=== PATIENT | male | born 1975 | race Caucasian/White ===

== ENCOUNTER 2021-06-08 10:38 | Inpatient (IN) ==
[2021-06-08] MEDS ORDERED: NS 1,000 ML IV 1,000 ML ONE (11:18)
[2021-06-08] MEDS ORDERED: NS 1,000 ML IV 1,000 ML IV ONE (11:18)
[2021-06-08] MEDS ORDERED: ZOFRAN INJ 4 MG VIAL IVP ONE (11:20)
[2021-06-08] MEDS ORDERED: DEMEROL INJ IVP ONE (11:20)
--- NOTE | 2021-06-08 11:24 | DR.GENAD ---
HPI Time Seen Time Seen by Provider: 06/08/21 11:17 PCP Primary Care Physician: JOHN (GI) HPI Comment HPI Comment: PATIENT IS 46YR OLD FEMALE IN ER WITH CROHNS DISEASE FLARE UP TIMES 2 DAYS. NAUSEA MED NOT HEPING AND NOT HOLDING DOWN PREDNISONE OR FLUID. HAVING VOMITING AND DIARRHEA. Complaint/Symptoms Chief Complaint Doctors Comments: ABDOMINAL PAIN, NAUSEA, VOMITING DIARRHEA TIMES 2 DAYS. Chief Complaint:: PT STATES HIS CROHN'S IS FLARING UP. HE DIDN'T MAKE IT TO SEE DR. LOPEZ THIS WEEK; DR. LOPEZ ONLY CALLED IN NAUSEA MED LAST NIGHT. PT UNABLE TO TAKE PREDNISONE PRESCRIBED BY [facility] IN [place] YESTERDAY. COVID-19 Coronavirus risk:travel/contact w/high risk person: No Has patient experienced Coronavirus symptoms: No Nurses notes reviewed Nurses Notes Review: Yes Source History Provided: Patient Mode of Arrival Mode of Arrival: Ambulatory Timing Onset of Chief Complaint: 06/06/21 Came on: Suddenly Duration Duration: Constant Duration: Days Severity Severity: Moderate Modifying Factors Worsens:: FOOD. Improves:: LYING STILL. Associated Signs and Symptoms Associated Signs and Symptoms: WEAKNESS, Other History Other History: CROHNS DISEASE. PMH PMH Past Medical History: Yes Past Medical History: Anemia Past Medical History Comment: CROHN'S Past Surgical History: Yes Past Surgical History Comment: GI SURGERY Family History History of Family Medical Conditions: Yes Family Medical History: Hypertension Social History Does any household member use tobacco: No Alcohol Use: None Do you use any recreational Drugs:: No Lives With: Spouse and Family Lives Where: Home Travel Risk Coronavirus risk:travel/contact w/high risk person: No Has patient experienced Coronavirus symptoms: No Infectious screening In the last 2 months have you had wt loss of >10#?: NO Have you had fever, night sweats or hemotysis?: No Have you traveled outside the country in the last 6 months?: No Isolation: Standard ROS Review of Systems Constitutional: See HPI, Weakness and Fatigue; negative Fever Eyes: No Symptoms Reported and See HPI ENTM: No Symptoms Reported and See HPI; negative Nose Discharge and Nose Congestion Respiratoy: No Symptoms Reported and See HPI; negative Moist Cough, Short of Breath and Wheezing Cardiovascular: No Symptoms Reported and See HPI; negative Chest Pain Gastrointestinal/Abdominal: See HPI, Abdominal Pain, Diarrhea, Nausea and Vomiting Genitourinary: No Symptoms Reported and See HPI; negative Dysuria, Frequency and Hematuria Neurological: No Symptoms Reported and See HPI; negative Headache, Weakness and Dizziness Musculoskeletal: No Symptoms Reported and See HPI; negative Back Pain Integumentary: No Symptoms Reported and See HPI; negative Rash and Juandice Hematologic/Lymphatic: No Symptoms Reported and See HPI; negative Easy Bruising Endocrine: No Symptoms Reported and See HPI; negative Increased Thirst and Increased Urine Psychiatric: No Symptoms Reported and See HPI All Other Systems: Reviewed and Negative PE Vital Signs Vitals: Temperature 98.0 F Pulse Rate 94 Respiratory Rate 18 Blood Pressure 118/73 O2 Sat by Pulse Oximetry 99 General Limitations: No Limitations General Appearance: Alert and In No Apparent Distress Head Head Exam: Normal Inspection Eyes Eye exam: Normal Appearance; negative Scleral Icterus and Conjunctival Injection ENT ENT Exam: Normal Exam, Normal Oropharynx, Normal External Ear Exam and TM's Normal Bilaterally External Ear Exam: Normal External Inspection; negative Mastoid Tenderness TM/Canal Exam: Bilateral: Normal Nose Exam: Normal Nose Exam Mouth Exam: Normal Inspection; negative Lip Swelling and Tongue Swelling Throat Exam: Normal Inspection; negative Tonsillar Erythema, Tonsillomegaly and Tonsillar Exudate Neck Neck Exam: Normal Inspection and Trachea Midline; negative Tenderness Chest Chest Inspection: Normal Inspection; negative Symmetric Chest Wall Rise and Tenderness Respiratory Respiratory Exam: Normal Lung Sounds Bilat; negative Accessory Muscle Use, Chest Wall Tenderness and Respiratory Distress Respiratory Exam: Bilateral: Clear to Auscultation Cardiovascular Cardiovascular Exam: Regular Rate, Normal Rhythm and Normal Heart Sounds; negative Systolic Murmur and Diastolic Murmur Abdominal Exam Abdominal Exam: Normal Bowel Sounds, Soft and Tenderness Abdominal Tenderness: RLQ, LLQ, Suprapubic and Moderate Extremities Extremities Exam: Normal Inspection and Normal Capillary Refill Back Back Exam: Normal Inspection; negative (R) CVA Tenderness and (L) CVA Tenderness Neurologic Neurological Exam: Alert and Oriented X3; negative Motor Sensory Deficit Psychiatric Psychiatric Exam: Normal Affect and Normal Mood Skin Skin Exam: Warm, Dry, Intact and Normal Color MDM Additional Information Additional Information Obtained From: Family Differential Diagnosis Differential Diagnosis: LOWER ABDOMINAL PAIN, CROHNS DISEASE, UTI, DIVERTICULITIS, IBD. COURSE Treatment Treatment: SEE ORDERS DONE WHILE PATIENT IN ER. PATIENT GIVEN NS, 1L IV BOLUS, ZOFRAN 4MG IV AND DEMOROL 25MG IV GIVEN WHILE PATIENT IN ER. LABS AND CT REPORT DISCUSSED WITH PATIENT. PATIENT WAS ADMITTED TO HOSPITAL FOR FURTHER MANAGEMENT. Reevaluation 1st: Improved (PAIN IMPROVING.) Consultation Consultation Comments: DISCUSSED PATIENT WITH DR. GARCIA. HE WILL ADMIT PATIENT. Education/Counseling Education/Counseling: Patient Educated On: Diagnosis ROR Labs Reviewed Result Diagrams: 06/10/21 05:50 06/10/21 05:50 Laboratory: WBC 5.3 X10^3/uL (3.6-10.0) 06/08/21 11:30 RBC 4.62 X10^6/uL (4.7-6.0) L 06/08/21 11:30 Hgb 10.5 g/dL (13.5-18.0) L 06/08/21 11:30 Hct 32.9 % (42.0-54.0) L 06/08/21 11:30 MCV 71.2 fL (80.0-100.0) L 06/08/21 11:30 MCH 22.7 pg (27.0-34.0) L 06/08/21 11:30 MCHC 31.8 g/dL (33.0-35.0) L 06/08/21 11:30 RDW 19.1 % (11.6-16.5) H 06/08/21 11:30 Plt Count 217 X10^3/uL (150.0-450.0) 06/08/21 11:30 Plt Count Comment Adequate (ADEQUATE) 06/08/21 11:30 MPV 9.1 fL (7.4-11.0) 06/08/21 11:30 Neut % (Auto) 69.7 % (42.0-75.0) 06/08/21 11:30 Lymph % (Auto) 14.3 % (21.0-51.0) L 06/08/21 11:30 [place] % (Auto) 12.6 % (0.0-13.0) 06/08/21 11:30 Eos % (Auto) 2.5 % (0.9-2.9) 06/08/21 11:30 Baso % (Auto) 0.9 % (0.2-1.0) 06/08/21 11:30 Neut # (Auto) 3.7 x10^3/uL (2.2-4.8) 06/08/21 11:30 Lymph # (Auto) 0.8 X10^3/uL (1.3-2.9) L 06/08/21 11:30 [place] # (Auto) 0.7 x10^3/uL (0.3-0.8) 06/08/21 11:30 Eos # (Auto) 0.1 x10^3/uL (0.0-0.2) 06/08/21 11:30 Baso # (Auto) 0.0 X10^3/uL (0.0-0.1) 06/08/21 11:30 Absolute Nucleated RBC 0.0 /100WBC 06/08/21 11:30 Total Counted Cancelled 06/08/21 11:30 Neutrophils % (Manual) Cancelled 06/08/21 11:30 Band Neutrophils % Cancelled 06/08/21 11:30 Lymphocytes % (Manual) Cancelled 06/08/21 11:30 Monocytes % (Manual) Cancelled 06/08/21 11:30 Eosinophils % (Manual) Cancelled 06/08/21 11:30 Basophils % (Manual) Cancelled 06/08/21 11:30 Metamyelocytes % Cancelled 06/08/21 11:30 Myelocytes % Cancelled 06/08/21 11:30 Promyelocytes % Cancelled 06/08/21 11:30 Plt Morphology Comment Normal (NORMAL) 06/08/21 11:30 RBC Morphology Abnormal (NORMAL) 06/08/21 11:30 Hypochromasia 1+ A 06/08/21 11:30 Anisocytosis Slight A 06/08/21 11:30 Microcytosis Slight A 06/08/21 11:30 Ovalocytes Present 06/08/21 11:30 ESR 14 MM/HOUR (0-15) 06/08/21 11:30 Sodium 143 mmol/L (136-145) 06/08/21 11:30 Corrected Sodium TNP 06/08/21 11:30 Potassium 3.9 mmol/L (3.5-5.1) 06/08/21 11:30 Chloride 105 mmol/L (98-107) 06/08/21 11:30 Carbon Dioxide 29.1 mmol/L (21-32) 06/08/21 11:30 BUN 9 mg/dL (7-18) 06/08/21 11:30 Creatinine 0.92 mg/dL (0.70-1.30) 06/08/21 11:30 Est GFR (MDRD) Af Amer > 60 (>60) 06/08/21 11:30 Est GFR (MDRD) Non-Af > 60 (>60) 06/08/21 11:30 Glucose 91 mg/dL (65-99) 06/08/21 11:30 Calcium 7.9 mg/dL (8.5-10.1) L 06/08/21 11:30 Corrected Calcium TNP 06/08/21 11:30 Total Bilirubin 0.40 mg/dL (0.2-1.0) 06/08/21 11:30 AST 8 Units/L (15-37) L 06/08/21 11:30 ALT 13 Units/L (12-78) 06/08/21 11:30 Alkaline Phosphatase 61 Units/L (46-116) 06/08/21 11:30 Total Protein 6.5 g/dL (6.4-8.2) 06/08/21 11:30 Albumin 3.4 g/dL (3.4-5.0) 06/08/21 11:30 Globulin 3.1 g/dL (2.5-4.5) 06/08/21 11:30 Albumin/Globulin Ratio 1.1 Ratio (1.1-2.1) 06/08/21 11:30 Amylase 47 Units/L (25-115) 06/08/21 11:30 Lipase 72 Units/L (73-393) L 06/08/21 11:30 Specimen Type Clean catch urine 06/08/21 13:00 Urine Color Yellow (YELLOW) 06/08/21 13:00 Urine Appearance Cloudy (CLEAR) 06/08/21 13:00 Urine pH 5.0 (5.0 - 8.0) 06/08/21 13:00 Ur Specific [place] 1.025 (1.000-1.030) 06/08/21 13:00 Urine Protein 2+ (NEGATIVE) 06/08/21 13:00 Urine Glucose (UA) Negative (NEGATIVE) 06/08/21 13:00 Urine Ketones 4+ (NEGATIVE) 06/08/21 13:00 Urine Occult Blood Negative (NEGATIVE) 06/08/21 13:00 Urine Nitrite Negative (NEGATIVE) 06/08/21 13:00 Urine Bilirubin 2+ (NEGATIVE) 06/08/21 13:00 Urine Urobilinogen 1+ (NORMAL) 06/08/21 13:00 Ur Leukocyte Esterase 1+ (NEGATIVE) 06/08/21 13:00 Urine RBC 3-5 /HPF (0-3) A 06/08/21 13:00 Urine WBC 3-5 /HPF (0-5) 06/08/21 13:00 Ur Squamous Epith Cells Negative /HPF (NEGATIVE) 06/08/21 13:00 Urine Bacteria Negative /HPF (NEGATIVE) 06/08/21 13:00 Ur Culture Indicated? No/not indicated 06/08/21 13:00 SARS CoV-2 RNA Rapid BARB Negative (NEGATIVE) 06/08/21 13:15 Opioid Opioid Risk Tool Age (Kasi box if 16-45): Yes History of Preadolescent Sexual Abuse: No Total: 1 Total Score Risk Category: Low Risk Copyright: Ben BARRERA predicting aberrant behaviors Diagnosis Discharge Problem: RLQ abdominal pain Crohn's disease Qualifiers: Gastrointestinal tract location: small intestine Digestive disease complication type: unspecified complication Qualified Code(s): K50.019 - Crohn's disease of small intestine with unspecified complications Instructions Instructions: Bowel Obstruction, [id number] Abdominal Pain, Adult, [id number] [place] Diet Crohn's Disease Forms: Excuse From Work or School Precautions for COVID19 [facility] Social Distancing
[2021-06-08 11:40] LABS: BASOPHILS % (AUTO) 0.9 % (0.2-1.0); EOSINOPHILS # (AUTO) 0.1 x10^3/uL (0.0-0.2); EOSINOPHILS % (AUTO) 2.5 % (0.9-2.9); HEMATOCRIT 32.9 % (42.0-54.0); HEMOGLOBIN 10.5 g/dL (13.5-18.0); LYMPHOCYTES # (AUTO) 0.8 X10^3/uL (1.3-2.9); LYMPHOCYTES % (AUTO) 14.3 % (21.0-51.0); MEAN CORPUSCULAR HEMOGLOBIN 22.7 pg (27.0-34.0); MEAN CORPUSCULAR HGB CONC 31.8 g/dL (33.0-35.0); MEAN CORPUSCULAR VOLUME 71.2 fL (80.0-100.0); MEAN PLATELET VOLUME 9.1 fL (7.4-11.0); MONOCYTES # (AUTO) 0.7 x10^3/uL (0.3-0.8); MONOCYTES % (AUTO) 12.6 % (0.0-13.0); NEUTROPHILS # (AUTO) 3.7 x10^3/uL (2.2-4.8); NEUTROPHILS % (AUTO) 69.7 % (42.0-75.0); RED BLOOD COUNT 4.62 X10^6/uL (4.7-6.0); RED CELL DISTRIBUTION WIDTH 19.1 % (11.6-16.5); WHITE BLOOD COUNT 5.3 X10^3/uL (3.6-10.0)
[2021-06-08] MEDS ORDERED: DEMEROL INJ ONE (11:48)
[2021-06-08] MEDS ORDERED: ZOFRAN INJ 4 MG VIAL ONE (11:49)
[2021-06-08 11:50] LABS: ALANINE AMINOTRANSFERASE 13 Units/L (12-78); ALBUMIN 3.4 g/dL (3.4-5.0); ALKALINE PHOSPHATASE 61 Units/L (46-116); AMYLASE 47 Units/L (25-115); ASPARTATE AMINO TRANSFERASE 8 Units/L (15-37); BLOOD UREA NITROGEN 9 mg/dL (7-18); CALCIUM 7.9 mg/dL (8.5-10.1); CARBON DIOXIDE 29.1 mmol/L (21-32); CHLORIDE 105 mmol/L (98-107); CREATININE 0.92 mg/dL (0.70-1.30); LIPASE 72 Units/L (73-393); SODIUM 143 mmol/L (136-145); TOTAL PROTEIN 6.5 g/dL (6.4-8.2); eGFR NON BLACK RACES > 60 (>60)
--- NOTE | 2021-06-08 11:58 | CT ---
HISTORYPT C/O NAUSEA, VOMITING, DIARRHEA, ABDOMINAL PAIN. HX OF CROHN'S DISEASESTUDYABDOMEN/PELVIS W/O CONCOMPARISONNone availableTECHNIQUEAxial CT images of the abdomen and pelvis without intravenous contrast. Coronal and sagittal images are obtained. Dose reduction techniques including Automated Exposure Control (AEC) and adjustment of mA and kV were utilized.FINDINGSLower chest: No significant abnormalityLiver: No significant abnormalityGallbladder and Bile Ducts:No significant abnormalityPancreas: No significant abnormalitySpleen: No significant abnormalityAdrenals: No significant abnormalityKidneys: No significant abnormalityBladder: No significant abnormalityReproductive Structures: No significant abnormality.Bowel and Stomach: The proximal to mid small bowel is moderately dilated with areas of mild mural thickening and inflammatory stranding. There is transition point located at the anastomosis in the central pelvis. Distal small bowel loops are decompressed, extending to the operative changes at the ileocecal junction. The colon is unremarkable.Appendix: Not visualizedLymph Nodes: No significant lymphadenopathyVasculature: Abdominal aorta and branching vessels are normal in caliberOther: No significant free fluid. No organized collection of free air.Osseous Structures: No acute osseous findingsIMPRESSION1. Small-bowel obstruction with transition point located at the small bowel anastomosis in the pelvis2. Scattered areas of mural thickening and inflammatory stranding of the dilated mid small bowel may be related to obstruction/distension or could reflect enteritis.3. No other acute abnormality.Electronically signed by: Juan Carlos Esparza (Jun 08, 2021 11:57:20)
[2021-06-08 12:48] LABS: PLATELET MORPHOLOGY COMMENT NORMAL (NORMAL)
[2021-06-08 12:49] LABS: ANISOCYTOSIS SLIGHT; HYPOCHROMASIA 1+; MICROCYTOSIS SLIGHT; OVALOCYTES PRESENT
[2021-06-08 13:14] LABS: BILIRUBIN,URINE 2+ (NEGATIVE); BLOOD/HEMOGLOBIN,URINE NEGATIVE (NEGATIVE); COLOR,URINE YELLOW (YELLOW); GLUCOSE, URINE NEGATIVE (NEGATIVE); KETONES,URINE 4+ (NEGATIVE); LEUKOCYTE ESTERASE ,URINE 1+ (NEGATIVE); NITRITES,URINE NEGATIVE (NEGATIVE); PROTEIN,URINE 2+ (NEGATIVE); UROBILINOGEN,URINE 1+ (NORMAL)
[2021-06-08 13:15] LABS: APPEARANCE,URINE CLOUDY (CLEAR)
[2021-06-08 13:17] LABS: BACTERIA,URINE NEGATIVE /HPF (NEGATIVE); SQUAMOUS EPITHELIAL CELL,UR NEGATIVE /HPF (NEGATIVE)
[2021-06-08] MEDS ORDERED: ZOSYN VIAL 3.375 GRAMS IV ONE (13:35)
[2021-06-08] MEDS ORDERED: NS 100 ML IV 100 ML ONE (13:36)
[2021-06-08] MEDS: ZOSYN VIAL 3.375 GRAMS 3.375 G in NS 100 ML IV 100 ML IV SCH ×2 (13:50→14:13)
[2021-06-08] MEDS ORDERED: ZOFRAN INJ 4 MG VIAL IVP PRN (19:18)
[2021-06-08] MEDS ORDERED: DILAUDID INJ IVP PRN (19:18)
[2021-06-08] MEDS: PROTONIX TAB 40 MG PO SCH (20:16)
[2021-06-08] MEDS ORDERED: NS 250 ML IV 250 ML IV ONE (22:40)
[2021-06-08] MEDS: SOLU-Medrol 125 MG VIAL IVP SCH (22:46)
[2021-06-08] MEDS: FLAGYL IV PREMIX 500 MG BAG 500 MG/100 ML BAG IV SCH (22:46)
[2021-06-09] MEDS: ZOSYN VIAL 3.375 GRAMS 3.375 G in NS 100 ML IV 100 ML IV SCH ×4 (00:30→21:37)
[2021-06-09] MEDS: FLAGYL IV PREMIX 500 MG BAG 500 MG/100 ML BAG IV SCH ×4 (04:39→20:36)
[2021-06-09] MEDS: SOLU-Medrol 125 MG VIAL IVP SCH ×3 (06:00→21:37)
[2021-06-09 06:21] LABS: BASOPHILS % (AUTO) 0.3 % (0.2-1.0); EOSINOPHILS % (AUTO) 0.2 % (0.9-2.9); HEMATOCRIT 29.6 % (42.0-54.0); HEMOGLOBIN 9.3 g/dL (13.5-18.0); LYMPHOCYTES # (AUTO) 0.4 X10^3/uL (1.3-2.9); LYMPHOCYTES % (AUTO) 11.7 % (21.0-51.0); MEAN CORPUSCULAR HEMOGLOBIN 22.6 pg (27.0-34.0); MEAN CORPUSCULAR HGB CONC 31.6 g/dL (33.0-35.0); MEAN CORPUSCULAR VOLUME 71.5 fL (80.0-100.0); MEAN PLATELET VOLUME 9.9 fL (7.4-11.0); MONOCYTES # (AUTO) 0.1 x10^3/uL (0.3-0.8); MONOCYTES % (AUTO) 1.8 % (0.0-13.0); NEUTROPHILS # (AUTO) 2.6 x10^3/uL (2.2-4.8); RED BLOOD COUNT 4.14 X10^6/uL (4.7-6.0); RED CELL DISTRIBUTION WIDTH 18.8 % (11.6-16.5)
[2021-06-09 06:29] LABS: ALANINE AMINOTRANSFERASE 12 Units/L (12-78); ALBUMIN 2.9 g/dL (3.4-5.0); ALKALINE PHOSPHATASE 52 Units/L (46-116); ASPARTATE AMINO TRANSFERASE 8 Units/L (15-37); BLOOD UREA NITROGEN 12 mg/dL (7-18); CALCIUM 7.5 mg/dL (8.5-10.1); CARBON DIOXIDE 26.7 mmol/L (21-32); CHLORIDE 106 mmol/L (98-107); COR CA(FOR HYPOALB) 8.4 mg/dL (8.5-10.1); CREATININE 0.94 mg/dL (0.70-1.30); SODIUM 141 mmol/L (136-145); TOTAL PROTEIN 5.8 g/dL (6.4-8.2); eGFR NON BLACK RACES > 60 (>60)
[2021-06-09 06:57] LABS: PLATELET MORPHOLOGY COMMENT NORMAL (NORMAL)
[2021-06-09 06:58] LABS: ANISOCYTOSIS SLIGHT; HYPOCHROMASIA 1+; MICROCYTOSIS SLIGHT; OVALOCYTES PRESENT
[2021-06-09] MEDS: PROTONIX TAB 40 MG PO SCH (09:31)
--- NOTE | 2021-06-09 11:06 | RAD ---
HISTORYAbdominal painSTUDYKUBCOMPARISONCT from 06/08/2021FINDINGSPostoperative changes of the right abdomen. Dilated small bowel loops remain. This appears unchanged from yesterday CT. No free air.IMPRESSIONUnchanged small-bowel dilatationElectronically signed by: Juan Carlos Esparza (Jun 09, 2021 11:05:51)
--- NOTE | 2021-06-09 11:36 | DR.PROGNOT ---
Hospital Progress Notes - Progress Note for Day of: Progress Note Date: 06/09/21 - Chief Complaint Chief Complaint: feeling better today .. no vomiting and diarrhea had mostly subsided .. - Past Medical Family Social History Past Med/Fam/Surg Hx: No changes since H&P Allergies: Allergies No Known Drug Allergies Allergy (Verified 06/08/21 12:03) - Review Of Systems ROS: No change since H&P - Vital Signs Vital Signs: Temperature 98.9 F Pulse Rate [Left Radial] 66 Pulse Rate 94 Respiratory Rate 20 Blood Pressure [Left Arm] 102/58 Blood Pressure 118/73 O2 Sat by Pulse Oximetry 97 - Physical Exam Oriented: Normal Eyes: Normal Ear: Normal Nose: Normal Throat: Normal Respiratory: Normal Cardiovascular: Normal : Normal GI:Auscultation: Normal GI: Tenderness: Diffuse (full abdomen with mild to moderate diffuse tenderness .. BS+) Speech Pattern: Clear - Laboratory and Diagnostics Result Diagrams: 06/09/21 05:22 06/09/21 05:22 Labs: Laboratory WBC 3.0 X10^3/uL (3.6-10.0) L 06/09/21 05:22 RBC 4.14 X10^6/uL (4.7-6.0) L 06/09/21 05:22 Hgb 9.3 g/dL (13.5-18.0) L 06/09/21 05:22 Hct 29.6 % (42.0-54.0) L 06/09/21 05:22 MCV 71.5 fL (80.0-100.0) L 06/09/21 05:22 MCH 22.6 pg (27.0-34.0) L 06/09/21 05:22 MCHC 31.6 g/dL (33.0-35.0) L 06/09/21 05:22 RDW 18.8 % (11.6-16.5) H 06/09/21 05:22 Plt Count 177 X10^3/uL (150.0-450.0) 06/09/21 05:22 Plt Count Comment Adequate (ADEQUATE) 06/09/21 05:22 MPV 9.9 fL (7.4-11.0) 06/09/21 05:22 Neut % (Auto) 86.0 % (42.0-75.0) H 06/09/21 05:22 Lymph % (Auto) 11.7 % (21.0-51.0) L 06/09/21 05:22 [place] % (Auto) 1.8 % (0.0-13.0) 06/09/21 05:22 Eos % (Auto) 0.2 % (0.9-2.9) L 06/09/21 05:22 Baso % (Auto) 0.3 % (0.2-1.0) 06/09/21 05:22 Neut # (Auto) 2.6 x10^3/uL (2.2-4.8) 06/09/21 05: Lymph # (Auto) 0.4 X10^3/uL (1.3-2.9) L 06/09/21 05:22 [place] # (Auto) 0.1 x10^3/uL (0.3-0.8) L 06/09/21 05:22 Eos # (Auto) 0.0 x10^3/uL (0.0-0.2) 06/09/21 05:22 Baso # (Auto) 0.0 X10^3/uL (0.0-0.1) 06/09/21 05: Absolute Nucleated RBC 0.0 /100WBC 06/09/21 05:22 Total Counted Cancelled 06/08/21 11:30 Neutrophils % (Manual) Cancelled 06/08/21 11:30 Band Neutrophils % Cancelled 06/08/21 11:30 Lymphocytes % (Manual) Cancelled 06/08/21 11:30 Monocytes % (Manual) Cancelled 06/08/21 11:30 Eosinophils % (Manual) Cancelled 06/08/21 11:30 Basophils % (Manual) Cancelled 06/08/21 11:30 Metamyelocytes % Cancelled 06/08/21 11:30 Myelocytes % Cancelled 06/08/21 11:30 Promyelocytes % Cancelled 06/08/21 11:30 Plt Morphology Comment Normal (NORMAL) 06/09/21 05:22 RBC Morphology Abnormal (NORMAL) 06/09/21 05:22 Hypochromasia 1+ A 06/09/21 05:22 Anisocytosis Slight A 06/09/21 05:22 Microcytosis Slight A 06/09/21 05:22 Ovalocytes Present 06/09/21 05:22 ESR 14 MM/HOUR (0-15) 06/08/21 11:30 Sodium 141 mmol/L (136-145) 06/09/21 05:22 Corrected Sodium TNP 06/09/21 05:22 Potassium 4.1 mmol/L (3.5-5.1) 06/09/21 05:22 Chloride 106 mmol/L (98-107) 06/09/21 05:22 Carbon Dioxide 26.7 mmol/L (21-32) 06/09/21 05:22 BUN 12 mg/dL (7-18) 06/09/21 05:22 Creatinine 0.94 mg/dL (0.70-1.30) 06/09/21 05:22 Est GFR (MDRD) Af Amer > 60 (>60) 06/09/21 05:22 Est GFR (MDRD) Non-Af > 60 (>60) 06/09/21 05:22 Glucose 93 mg/dL (65-99) 06/09/21 05:22 Calcium 7.5 mg/dL (8.5-10.1) L 06/09/21 05:22 Corrected Calcium 8.4 mg/dL (8.5-10.1) L 06/09/21 05:22 Total Bilirubin 0.50 mg/dL (0.2-1.0) 06/09/21 05:22 AST 8 Units/L (15-37) L 06/09/21 05:22 ALT 12 Units/L (12-78) 06/09/21 05:22 Alkaline Phosphatase 52 Units/L (46-116) 06/09/21 05:22 Total Protein 5.8 g/dL (6.4-8.2) L 06/09/21 05:22 Albumin 2.9 g/dL (3.4-5.0) L 06/09/21 05:22 Globulin 2.9 g/dL (2.5-4.5) 06/09/21 05:22 Albumin/Globulin Ratio 1.0 Ratio (1.1-2.1) L 06/09/21 05:22 Amylase 47 Units/L (25-115) 06/08/21 11:30 Lipase 72 Units/L (73-393) L 06/08/21 11:30 Specimen Type Clean catch urine 06/08/21 13:00 Urine Color Yellow (YELLOW) 06/08/21 13:00 Urine Appearance Cloudy (CLEAR) 06/08/21 13:00 Urine pH 5.0 (5.0 - 8.0) 06/08/21 13:00 Ur Specific [place] 1.025 (1.000-1.030) 06/08/21 13:00 Urine Protein 2+ (NEGATIVE) 06/08/21 13:00 Urine Glucose (UA) Negative (NEGATIVE) 06/08/21 13:00 Urine Ketones 4+ (NEGATIVE) 06/08/21 13:00 Urine Occult Blood Negative (NEGATIVE) 06/08/21 13:00 Urine Nitrite Negative (NEGATIVE) 06/08/21 13:00 Urine Bilirubin 2+ (NEGATIVE) 06/08/21 13:00 Urine Urobilinogen 1+ (NORMAL) 06/08/21 13:00 Ur Leukocyte Esterase 1+ (NEGATIVE) 06/08/21 13:00 Urine RBC 3-5 /HPF (0-3) A 06/08/21 13:00 Urine WBC 3-5 /HPF (0-5) 06/08/21 13:00 Ur Squamous Epith Cells Negative /HPF (NEGATIVE) 06/08/21 13:00 Urine Bacteria Negative /HPF (NEGATIVE) 06/08/21 13:00 Ur Culture Indicated? No/not indicated 06/08/21 13:00 SARS CoV-2 RNA Rapid BARB Negative (NEGATIVE) 06/08/21 13:15 - Assessment and Plan 1: Crohn's disease with partial SBO . h/o bowel resection for crohn's disease. anemia . Same IVF , steroids and ABT . repeat abdominal Xray . clear liquid .. - Problem Patient Problems: Patient Problems RLQ abdominal pain (Acute) R10.31
[2021-06-09 20:15] VITALS: BMI 25.9
[2021-06-10] MEDS: FLAGYL IV PREMIX 500 MG BAG 500 MG/100 ML BAG IV SCH ×2 (04:21→09:00)
--- NOTE | 2021-06-10 05:40 | RAD ---
HISTORYABD PAIN CROHN'S; SX: GI SURGERY .[id number]/13/2022 is isFINDINGSEvaluation of the abdomen demonstrates a a few dilated loops of small bowel with interval improvement from prior study 06/09/2021. no pathological soft tissue mass or calcification can be observed. The bony structures are grossly intact.IMPRESSIONA few dilated loops of small bowel with interval improvement from previous 06/09/2021.Electronically signed by: Sedrick Win (Jun 10, 2021 05:39:09)
[2021-06-10] MEDS: SOLU-Medrol 125 MG VIAL IVP SCH (05:58)
[2021-06-10] MEDS: ZOSYN VIAL 3.375 GRAMS 3.375 G in NS 100 ML IV 100 ML IV SCH (06:00)
[2021-06-10 06:50] LABS: BASOPHILS % (AUTO) 0 % (0.2-1.0); HEMATOCRIT 29.8 % (42.0-54.0); HEMOGLOBIN 9.5 g/dL (13.5-18.0); LYMPHOCYTES # (AUTO) 0.6 X10^3/uL (1.3-2.9); LYMPHOCYTES % (AUTO) 7.9 % (21.0-51.0); MEAN CORPUSCULAR HEMOGLOBIN 22.6 pg (27.0-34.0); MEAN CORPUSCULAR VOLUME 70.7 fL (80.0-100.0); MEAN PLATELET VOLUME 9.8 fL (7.4-11.0); MONOCYTES # (AUTO) 0.3 x10^3/uL (0.3-0.8); MONOCYTES % (AUTO) 3.9 % (0.0-13.0); NEUTROPHILS # (AUTO) 7.2 x10^3/uL (2.2-4.8); NEUTROPHILS % (AUTO) 88.2 % (42.0-75.0); RED BLOOD COUNT 4.22 X10^6/uL (4.7-6.0); RED CELL DISTRIBUTION WIDTH 19.1 % (11.6-16.5); WHITE BLOOD COUNT 8.1 X10^3/uL (3.6-10.0)
[2021-06-10 06:52] LABS: ALANINE AMINOTRANSFERASE 10 Units/L (12-78); ALBUMIN 2.7 g/dL (3.4-5.0); ALKALINE PHOSPHATASE 51 Units/L (46-116); ASPARTATE AMINO TRANSFERASE 6 Units/L (15-37); BLOOD UREA NITROGEN 8 mg/dL (7-18); CALCIUM 7.9 mg/dL (8.5-10.1); CARBON DIOXIDE 28.1 mmol/L (21-32); CHLORIDE 107 mmol/L (98-107); COR CA(FOR HYPOALB) 8.9 mg/dL (8.5-10.1); COR NA(FOR HYPERGLY) 142 mmol/L (136-145); CREATININE 0.74 mg/dL (0.70-1.30); SODIUM 141 mmol/L (136-145); TOTAL PROTEIN 5.7 g/dL (6.4-8.2); eGFR NON BLACK RACES > 60 (>60)
[2021-06-10 07:46] LABS: PLATELET MORPHOLOGY COMMENT NORMAL (NORMAL)
[2021-06-10 07:47] LABS: ANISOCYTOSIS SLIGHT; HYPOCHROMASIA 1+; MICROCYTOSIS SLIGHT; OVALOCYTES 1+
[2021-06-10] MEDS: PROTONIX TAB 40 MG PO SCH (08:17)
[2021-06-10 12:10] VITALS: BP 116/57
== END 2021-06-10 12:45 | disposition home or self-care (01) | DRG 387 ==
LOC: ER 10:43 → MED/SURG 13:18
PROVIDERS: ADMIT Surgery; ATTEND Surgery

== ENCOUNTER 2022-10-05 23:00 | Observation (INO) ==
--- NOTE | 2022-10-05 23:38 | DR.FB ---
HPI Time Seen Time Seen by Provider: 10/05/22 23:36 Complaint Chief Complaint:: PATIENT C/O PORK CHOP STUCK IN HIS THROAT. PATIENT STATES HE HAS HAD THIS HAPPEN BEFORE AND HAD TO BE PUT TO SLEEP TO HAVE IT REMOVED. PATIENT STATES HE HAS NOT BEEN ABLE TO GET ANYTHING DOWN. Chief Complaint Doctors Comments: Patient states that he has a pork chop stuck in his throat.Patient states that he swallowed the food at 21:00.Patient states that he had to have food removed several yrs ago. He had to be put to sleep.Patient is not able to swallow his saliva. Patient denies:dizziness,headache,hoarseness,sob. COVID-19 Coronavirus risk:travel/contact w/high risk person: No Has patient experienced Coronavirus symptoms: No Source History Provided: Patient Mode of Arrival Mode of Arrival: Ambulatory Timing Onset of Chief Complaint: 10/05/22 PMH PMH Past Medical History: Yes Past Medical History: Anemia Past Medical History Comment: CHRONS DISEASE Past Surgical History: Yes Surgical History: Abdominal Surgery Family History History of Family Medical Conditions: Yes Family Medical History: Hypertension Social History Does any household member use tobacco: No Alcohol Use: None Do you use any recreational Drugs:: No Lives With: Family Lives Where: Home Travel Risk Coronavirus risk:travel/contact w/high risk person: No Has patient experienced Coronavirus symptoms: No Infectious screening In the last 2 months have you had wt loss of >10#?: NO Have you had fever, night sweats or hemotysis?: No Have you traveled outside the country in the last 6 months?: No Isolation: Standard ROS Review of Systems Constitutional: No Symptoms Reported Eyes: No Symptoms Reported ENTM: No Symptoms Reported and Throat Pain (FB throat) Respiratoy: No Symptoms Reported Cardiovascular: No Symptoms Reported Gastrointestinal/Abdominal: No Symptoms Reported and Other (Can't swallow saliva) Genitourinary: No Symptoms Reported Neurological: No Symptoms Reported Musculoskeletal: No Symptoms Reported Integumentary: No Symptoms Reported Hematologic/Lymphatic: No Symptoms Reported Endocrine: No Symptoms Reported Psychiatric: No Symptoms Reported All Other Systems: Reviewed and Negative PE Vital Signs Vitals: Vital Signs Temperature 97.9 F Pulse Rate 83 Respiratory Rate 20 Blood Pressure 116/69 O2 Sat by Pulse Oximetry 96 General Limitations: No Limitations General Appearance: Alert and In No Apparent Distress Eyes Eye exam: Normal Appearance ENT ENT Exam: Normal Exam Mouth Exam: negative Trismus or Tongue Swelling Throat Exam: Normal Inspection and Other (No stridor) Neck Neck Exam: Normal Inspection Chest Chest Inspection: Normal Inspection Respiratory Respiratory Exam: Normal Lung Sounds Bilat Respiratory Exam: Bilateral: Clear to Auscultation Cardiovascular Cardiovascular Exam: Regular Rate and Normal Rhythm Abdominal Exam Abdominal Exam: Normal Inspection, Normal Bowel Sounds and Soft Rectal Rectal Exam: Deferred Genitalia Genitalia: Deferred Neurologic Neurological Exam: Alert and Oriented X3 Psychiatric Psychiatric Exam: Normal Affect and Normal Mood Skin Skin Exam: Warm, Dry, Intact and Normal Color MDM Differential Diagnosis Differential Diagnosis: Esophageal obstruction and Foreign body (Esophagus) COURSE Treatment Treatment: Patient's soft tissue lat neck revealed a density in the esophagus. Discussed case with Dr Sarkar. He will admit patient to his service at [facility] and request consult Dr Marshall ROR XRAY XRAY Interpreted by: Radiologist X-ray Results: HISTORY fb in throat, cant swallow STUDY SOFT TISSUE NECK W/O CON COMPARISON None available. TECHNIQUE Axial CT images of the neck were obtained without IV contrast and reformatted into sagittal and coronal planes for further evaluation. Radiation dose: 184.05 mGy-cm total DLP FINDINGS Oropharynx and nasopharynx are unremarkable. Retropharyngeal and parapharyngeal spaces appear normal. Epiglotis and aryepiglottic folds appear normal. Glottis appears normal. Parotid and submandibular glands appear normal. Thyroid appears normal Lung apices are clear of focal airspace disease. No lymphadenopathy. Imaged portion of the structures of the mediastinum are unremarkable. Nonspecific isodense material within the lumen of the origin of the esophagus. No acute osseous abnormality. Imaged portion of brain appears normal. Sinuses and mastoid air cells are well aerated. IMPRESSION Nonspecific isodense material within the lumen of the origin of the esophagus. Electronically signed by: Ángel Fontaine (Oct 06, 2022 00:16:57) Opioid Opioid Risk Tool Age (Kasi box if 16-45): Yes History of Preadolescent Sexual Abuse: No Total: 1 Total Score Risk Category: Low Risk Copyright: Ben BARRERA predicting aberrant behaviors Discharge Plan Diagnosis Discharge Problem: Esophageal foreign body Discharge Plan Patient Disposition: 09 ADMITTED INPATIENT Condition: Stable Prescriptions: No Action esomeprazole magnesium [Nexium] 40 mg Capsule,Delayed Release(Dr/Ec) 40 mg PO DAILY Health Concerns: Post Hospitalization: new medications and changes needed to prevent readmission or further decline. Pt educated and given instructions on all concerns. Plan of Treatment: Continue with present treatment and follow up plan. Pt is to keep follow up appointment as instructed and take medications as ordered. Orders to Discharge Patient Discharge Orders: Transfer (Routine); Ordered 10/06/22 Ordered By: Elda Valenzuela Follow ups/Referrals Follow ups/Referrals: Nicho Chery [Primary Care Provider] - 3 days Instructions Stand Alone Forms: Post Hospital Follow Up Care
--- NOTE | 2022-10-06 00:18 | CT ---
HISTORYfb in throat, cant swallowSTUDYSOFT TISSUE NECK W/O CONCOMPARISONNone available.TECHNIQUEAxial CT images of the neck were obtained without IV contrast and reformatted into sagittal and coronal planes for further evaluation.Radiation dose: 184.05 mGy-cm total DLPFINDINGSOropharynx and nasopharynx are unremarkable.Retropharyngeal and parapharyngeal spaces appear normal.Epiglotis and aryepiglottic folds appear normal.Glottis appears normal.Parotid and submandibular glands appear normal.Thyroid appears normalLung apices are clear of focal airspace disease.No lymphadenopathy.Imaged portion of the structures of the mediastinum are unremarkable.Nonspecific isodense material within the lumen of the origin of the esophagus.No acute osseous abnormality.Imaged portion of brain appears normal.Sinuses and mastoid air cells are well aerated.IMPRESSIONNonspecific isodense material within the lumen of the origin of the esophagus.Electronically signed by: Ángel Fontaine (Oct 06, 2022 00:16:57)
[2022-10-06 02:53] VITALS: BMI 25.0
[2022-10-06 06:04] LABS: BASOPHILS # (AUTO) 0.1 X10^3/uL (0.0-0.1); BASOPHILS % (AUTO) 2.1 % (0.2-1.0); EOSINOPHILS # (AUTO) 0.7 x10^3/uL (0.0-0.2); EOSINOPHILS % (AUTO) 12.3 % (0.9-2.9); HEMATOCRIT 31.2 % (42.0-54.0); HEMOGLOBIN 10.3 g/dL (13.5-18.0); LYMPHOCYTES # (AUTO) 1.5 X10^3/uL (1.3-2.9); LYMPHOCYTES % (AUTO) 27.6 % (21.0-51.0); MEAN CORPUSCULAR HEMOGLOBIN 25.6 pg (27.0-34.0); MEAN CORPUSCULAR HGB CONC 33.1 g/dL (33.0-35.0); MEAN CORPUSCULAR VOLUME 77.3 fL (80.0-100.0); MEAN PLATELET VOLUME 9.8 fL (7.4-11.0); MONOCYTES # (AUTO) 0.5 x10^3/uL (0.3-0.8); MONOCYTES % (AUTO) 9.3 % (0.0-13.0); NEUTROPHILS # (AUTO) 2.6 x10^3/uL (2.2-4.8); NEUTROPHILS % (AUTO) 48.7 % (42.0-75.0); PLATELET COUNT 214 X10^3/uL (150.0-450.0); RED BLOOD COUNT 4.03 X10^6/uL (4.7-6.0); RED CELL DISTRIBUTION WIDTH 16.9 % (11.6-16.5); WHITE BLOOD COUNT 5.4 X10^3/uL (3.6-10.0)
[2022-10-06 06:27] LABS: ALANINE AMINOTRANSFERASE 15 Units/L (12-78); ALBUMIN 3.1 g/dL (3.4-5.0); ALKALINE PHOSPHATASE 48 Units/L (46-116); ASPARTATE AMINO TRANSFERASE 14 Units/L (15-37); BLOOD UREA NITROGEN 8 mg/dL (7-18); CALCIUM 7.9 mg/dL (8.5-10.1); CARBON DIOXIDE 31.2 mmol/L (21-32); CHLORIDE 107 mmol/L (98-107); COR CA(FOR HYPOALB) 8.6 mg/dL (8.5-10.1); CREATININE 0.96 mg/dL (0.70-1.30); GLUCOSE 87 mg/dL (65-99); POTASSIUM 3.6 mmol/L (3.5-5.1); SODIUM 143 mmol/L (136-145); TOTAL PROTEIN 5.6 g/dL (6.4-8.2); eGFR NON BLACK RACES > 60 (>60)
[2022-10-06] MEDS ORDERED: PROTONIX INJ 40 MG VIAL IVP ONE (07:08)
[2022-10-06] MEDS ORDERED: NS 1/2 + KCL 20 MEQ/L 1,000 ML IV SCH (09:00)
[2022-10-06] MEDS ORDERED: DIPRIVAN VIAL 20 ML ONE (11:03)
[2022-10-06] MEDS ORDERED: NS 500 ML IV 500 ML IV ONE (11:20)
[2022-10-06] MEDS ORDERED: VERSED ONE (11:24)
[2022-10-06] MEDS ORDERED: XYLOCAINE 2 % (PLAIN) ONE (11:24)
[2022-10-06 12:08] VITALS: RESP 18
[2022-10-06 14:22] VITALS: O2SAT 100
[2022-10-06 14:23] VITALS: BP 104/67; PULSE 63; TEMP 97.6
== END 2022-10-06 14:05 | disposition home or self-care (01) ==
LOC: MED/SURG 23:10 → ER 23:10 → MED/SURG 10-06 02:10
PROVIDERS: ADMIT Family Medicine; ATTEND Family Medicine
DX: K44.9 Diaphragmatic hernia without obstruction or gangrene; T18.128A Food in esophagus causing other injury, initial encounter; R13.11 Dysphagia, oral phase; K22.4 Dyskinesia of esophagus; X58.XXXA Exposure to other specified factors, initial encounter; Y92.9 Unspecified place or not applicable; K29.80 Duodenitis without bleeding; K22.2 Esophageal obstruction